=== PATIENT | female | born 1995 | race Asian ===

== ENCOUNTER 2018-06-23 12:35 | Emergency (ER) | payer OTHER ==
--- NOTE | 2018-06-23 13:53 | EDPHY ---
General Time Seen by Provider: 06/23/18 12:47 Narrative: CLINICAL IMPRESSION: Acute on chronic back pain ASSESSMENT/PLAN: 22-year-old Ethiopian female presents to the emergency department with 3-4 weeks of acute on chronic back pain. Patient reports no trauma, injury, heavy lifting. She has no associated saddle anesthesia, lower extremity paresthesias , bowel or bladder incontinence, urinary retention. Pain is reproducible to palpation of the paravertebral muscles of the lower lumbar spine. Negative straight leg raise test. No focal neurological deficits. No clinical signs to suggest cauda equina, epidural abscess, occult infection, fracture, or neurovascular compromise. X-rays of lumbar spine show narrowing of L5 on S1 with no acute fracture or compression deformity. X-ray results relayed to the patient and her friend. I have encouraged Neurosurgery follow-up for consultation given the chronic nature of her pain. We discussed outpatient treatment and [id number] remedies. Warning signs return to ED sooner discussed discharge. DIFFERENTIAL DX: Differential diagnosis includes but not limited to muscular pain, herniated disc, spine fracture, cauda equina, epidural abscess, infectious causes, intra- abdominal causes, pyelonephritis and urinary tract infection. ED PROCEDURES: See lab and/or imaging results below CHIEF COMPLAINT: Chronic back pain HPI: 22-year-old Ethiopian female presents to the emergency department with her friend for concerns of chronic back pain. Patient's friend reports that patient had workup for her back pain in [place] many years ago, had x-rays and an MRI and was told that she had "a crooked spine". She did not have surgery or consult with a neurosurgeon there. She states over the last 3-4 weeks she has had increased pain with sitting in class. No bowel or bladder incontinence, urinary retention , saddle anesthesia, gait intolerance, paresthesias in the legs. No back injury or surgery. She has not done heavy lifting or new exercises. No abdominal pain, flank pain or UTI symptoms. She has not taken anything for her pain. Her friend reports "we are here to get her back checked out so we can tell her family back home that her spine is okay". PAST MEDICAL HISTORY: History of chronic low back pain See triage summary and nurse notes for addition applicable history Pertinent Past Surgical History: None reported Social History: Student at [employer] REVIEW OF SYSTEMS: A full 10 point review of systems was negative except for those mentioned in HPI. PHYSICAL EXAM: General Appearance: Alert, oriented, appropriate, cooperative, NAD, well hydrated, non-toxic appearing, VSS, no hypoxia. Respiratory: There are no retractions, lungs are clear to auscultation. Cardiac: Regular rate and rhythm, no murmurs or gallops. Gastrointestinal: [Abdomen is soft, nontender Skin: Warm, dry, no rashes, no nodules on palpation. Musculoskeletal. Reproducible tenderness to the paravertebral muscles of the lower lumbar spine. Negative straight leg raise test. Ambulatory with steady gait. Normal heel and toe walking. Patellar DTRs 2+ bilaterally. Lower extremity strength 5/5 bilaterally. No reported paresthesias. MEDICAL DECISION MAKING: Patient was seen independently. Secondary supervising physician at time of evaluation was: Dr. Diallo . Diagnosis: Rectal exam deferred. Acute on chronic paravertebral back pain. . New, requires workup Summary: See Assessment and Plan for summary of ED visit Independent visualization of images, tracing, or specimens: yeS. Patient Progress: Stable for discharge. - Diagnostics Imaging Results: Imaging Impressions Lumbar Spine X-Ray 06/23/18 13:15 Impression: Minimal disk space loss at L5-S1, otherwise, negative study. If symptoms persist, MRI could be considered for further evaluation. - History Smoking Status: Former smoker - Objective Vital Signs: Initial Vital Signs Temperature (C) 37.3 C 06/23/18 12:41 Heart Rate 98 06/23/18 12:41 Respiratory Rate 18 06/23/18 12:41 Blood Pressure 115/86 H 06/23/18 12:41 O2 Sat (%) 96 06/23/18 12:41 O2 Delivery Mode Room Air Allergies/Adverse Reactions: No Known Allergies Allergy (Unverified 06/23/18 12:38) Home Medications: Medication Instructions Recorded NK [No Known Home Meds] 06/23/18 Departure - Departure Disposition: Home, Routine, Self-Care Clinical Impression: Chronic back pain Qualifiers: Back pain location: low back pain Back pain laterality: unspecified Sciatica presence: without sciatica Qualified Code(s): M54.5 - Low back pain Condition: Good Instructions: Low Back Strain (ED) Additional Instructions: DISCHARGE INSTRUCTIONS FROM YOUR DOCTOR Thank you for visiting our emergency department today. You were treated by a physician assistant prosecuting attorney today and your case was reviewed with our ED Attending physician. Please keep in mind that discharge from the emergency department does not mean that there is nothing wrong - it simply means that we have not identified an emergency condition that requires further evaluation or treatment in the hospital. You should always plan to follow up with primary care for re- evaluation of your condition in the next 2-3 days. If you have been referred to a specialist, please call as soon as possible (today or tomorrow) to schedule your follow up appointment at the appropriate time. XRAYS OF YOUR LOW BACK TODAY SHOW SOME NARROWING AT THE L5-S1 VERTEBRAE BUT NO CURVATURE OR FRACTURE. GIVEN THAT YOU HAVE HAD BACK PAIN FOR QUITE SOME TIME, AND IT IS AFFECTING YOUR STUDIES AND SCHOOLING, WE RECOMMEND FOLLOWING UP WITH A SPECIALIST. WE GAVE YOU A REFERRAL TO NEUROSURGERY. DURING EPISODES OF ACUTE BACK PAIN, YOU CAN TRY TAKING 600 MG OF IBUPROFEN WITH FOOD AND A LARGE GLASS OF WATER OR 2 EXTRA-STRENGTH TYLENOL. YOU CAN APPLY HEAT OR ICE. YOU CAN CONSIDER GENTLE MASSAGE, PHYSICAL THERAPY, OR ACUPUNCTURE. RETURN TO THE EMERGENCY DEPARTMENT IMMEDIATELY FOR SEVERE LOW BACK PAIN, BOWEL OR BLADDER INCONTINENCE, INABILITY TO EMPTY HER BLADDER, NUMBNESS TO THE LEGS OR GROIN REGION, INABILITY TO WALK, HIGH FEVERS OR ANY OTHER CONCERN. People present with illnesses and injuries in different ways, and it is always possible that we have missed something. You may always return for re-evaluation if symptoms worsen or if they are not improving or if you develop new/different symptoms. Again, thank you for choosing our emergency department. We hope that you feel better. Referrals: NONE *PRIMARY CARE P,. [Primary Care Provider] - As per Instructions Mark Marlow MD [Medical Doctor] - 2-3 days, call for appt.
[2018-06-23 14:14] VITALS: BP 123/81
== END 2018-06-23 14:14 | disposition home or self-care (01) ==
DX: M54.5 Low back pain (principal)